=== PATIENT | male | born 1970 | race African-American/Black ===

== ENCOUNTER 2020-07-26 00:04 | Emergency (ER) | payer SELFPAY ==
[2020-07-26] MEDS ORDERED: ASPIRIN 325 MG TAB PO ONE (00:23)
--- NOTE | 2020-07-26 00:50 | XRay Report ---
CHEST 1 VIEW 07/26/2020 12:48 AM INDICATION / CLINICAL INFORMATION: Chest Pain. COMPARISON: None available. FINDINGS: SUPPORT DEVICES: None. HEART / MEDIASTINUM: No significant abnormality. LUNGS / PLEURA: No significant pulmonary or pleural abnormality. No pneumothorax. ADDITIONAL FINDINGS: No significant additional findings. IMPRESSION: 1. No acute findings. Signer Name: Killian Conklin MD Signed: 07/26/2020 12:46 AM Workstation Name: [id number]
[2020-07-26 01:00] LABS: Basophils % (Auto) 0.2 % (0.0-1.8); Eosinophils # (Auto) 0.1 K/mm3 (0.0-0.4); Hematocrit 38.3 % (35.5-45.6); Hemoglobin 13.3 gm/dl (11.8-15.2); Lymphocytes # (Auto) 2.6 K/mm3 (1.2-5.4); Lymphocytes % (Auto) 40.1 % (13.4-35.0); Mean Corpuscular HGB Conc 35 % (32-34); Mean Corpuscular Volume 94 fl (84-94); Monocytes # (Auto) 0.5 K/mm3 (0.0-0.8); Monocytes % (Auto) 7.3 % (0.0-7.3); Platelet Count 225 K/mm3 (140-440); Red Blood Count 4.09 M/mm3 (3.65-5.03); Red Cell Distribution Width 13.3 % (13.2-15.2)
[2020-07-26 01:03] LABS: BUN/Creatinine Ratio 16; Blood Urea Nitrogen 13 mg/dL (9-20); Calcium 8.6 mg/dL (8.4-10.2); Hemolysis Index 7
[2020-07-26] MEDS ORDERED: ALUM-MAG HYDROXIDE-SIMETHICONE 200-200-20MG/5ML ORAL LIQD 30 ML PO ONE (05:13)
[2020-07-26] MEDS ORDERED: LIDOCAINE VISCOUS 2% 15 ML ORAL LIQD PO ONE (05:13)
--- NOTE | 2020-07-26 05:22 | Emergency Department Report ---
ED Chest Pain HPI - General Chief Complaint: Chest Pain Stated Complaint: CHEST TIGHTNESS Source: patient Mode of arrival: Ambulatory Limitations: No Limitations - History of Present Illness Initial Comments: 50-year-old male with no significant past medical history with exception of recently diagnosed GERD and previous hypotension presents to the hospital complaining of intermittent chest pain since 6 PM tonight. Patient has been having intermittent substernal chest tightness while at rest since 6 PM. Episodes occur for 4 to 5 minutes at a time and are not associated with shortness of breath, nausea, vomiting, or diaphoresis. Patient did have episode of nausea after smelling pizza ordered by his son which also worsened his tightness in his chest. He states he ate a bland diet of carrots, water, oatmeal and his discomfort in his chest improved. Patient reports that he exercised yesterday morning and ran around the park without difficulty and no recurrence of pain. Upon EMS arrival patient states he also had palpitations in the center of his chest during chest tightness episode but reports that he did not have a fast heart rate as per EMS. On Monday the while sleeping about 1:00 in a.m. patient woke up from sleep complaining of chest pressure and f eeling like it was worse with inspiration. He was seen at a clinic 2 days later and started on Hyoscyamine and pantoprazole 40mg. He states his symptoms improved until his episode today. He feels like the pain today is different because he is having intermittent tightness without shortness of breath. He denies calf tenderness, leg edema, history of PE/DVT, smoking, family history of CAD, or known elevated cholesterol, hypertension, or diabetes - Related Data Previous Rx's Medication Instructions Recorded Last Taken Type Mag Hydrox/Aluminum Hyd/Simeth 20 ml PO BID PRN #1 bottle 07/26/20 Unknown Rx [Maalox Advanced Suspension] traMADoL [Ultram 50 MG tab] 50 mg PO Q6HR PRN #10 tablet 07/26/20 Unknown Rx Allergies Allergy/AdvReac Type Severity Reaction Status Date / Time No Known Allergies Allergy Unverified 07/26/20 00:23 Heart Score - HEART Score History: Slightly suspicious EKG: Normal Age: 45-65 Risk factors: No known risk factors Troponin: < normal limit HEART Score: 1 ED Review of Systems ROS: Stated complaint: CHEST TIGHTNESS Other details as noted in HPI Comment: All other systems reviewed and negative ED Past Medical Hx - Past Medical History Previous Medical History?: Yes Hx GERD: Yes Additional medical history: Hypotension - Surgical History Past Surgical History?: No - Social History Smoking Status: Never Smoker Substance Use Type: None - Medications Home Medications: Home Medications Medication Instructions Recorded Confirmed Last Taken Type Mag Hydrox/Aluminum Hyd/Simeth 20 ml PO BID PRN #1 bottle 07/26/20 Unknown Rx [Maalox Advanced Suspension] traMADoL [Ultram 50 MG tab] 50 mg PO Q6HR PRN #10 tablet 07/26/20 Unknown Rx ED Physical Exam - General Limitations: No Limitations - Other Other exam information: General: No acute distress Head: Atraumatic Eyes: normal appearance ENT: Moist mucous membranes Neck: Normal appearance, no midline tenderness Chest: Clear to auscultation bilaterally CV: Regular rate and rhythm Abdomen: Soft, normal bowel sounds, nontender, nondistended, no rebound or guarding Back: Normal inspection Extremity: Normal inspection, full range of motion, no calf tenderness or edema Neuro: Alert O x 3, no facial asymmetry, speech clear, no gross motor sensory deficit Psych: Appropriate behavior Skin: No rash ED Course Vital Signs 07/26/20 07/26/20 07/26/20 00:17 03:45 04:01 Temperature 98.0 F Pulse Rate 60 69 65 Respiratory 12 12 13 Rate Blood Pressure 135/76 122/57 109/63 O2 Sat by Pulse 98 97 95 Oximetry 07/26/20 04:15 Temperature Pulse Rate 63 Respiratory 17 Rate Blood Pressure 109/63 O2 Sat by Pulse 97 Oximetry ED Medical Decision Making - Lab Data Result diagrams: 07/26/20 00:31 07/26/20 00:31 Lab Results 07/26/20 07/26/20 07/26/20 Range/Units 00:31 00:31 03:34 WBC 6.6 (4.5-11.0) K/mm3 RBC 4.09 (3.65-5.03) M/mm3 Hgb 13.3 (11.8-15.2) gm/dl Hct 38.3 (35.5-45.6) % MCV 94 (84-94) fl MCH 33 H (28-32) pg MCHC 35 H (32-34) % RDW 13.3 (13.2-15.2) % Plt Count 225 (140-440) K/mm3 Lymph % (Auto) 40.1 H (13.4-35.0) % [place] % (Auto) 7.3 (0.0-7.3) % Eos % (Auto) 1.0 (0.0-4.3) % Baso % (Auto) 0.2 (0.0-1.8) % Lymph # (Auto) 2.6 (1.2-5.4) K/mm3 [place] # (Auto) 0.5 (0.0-0.8) K/mm3 Eos # (Auto) 0.1 (0.0-0.4) K/mm3 Baso # (Auto) 0.0 (0.0-0.1) K/mm3 Seg Neutrophils % 51.4 (40.0-70.0) % Seg Neutrophils # 3.4 (1.8-7.7) K/mm3 Sodium 138 (137-145) mmol/L Potassium 3.8 (3.6-5.0) mmol/L Chloride 99.4 (98-107) mmol/L Carbon Dioxide 25 (22-30) mmol/L Anion Gap 17 mmol/L BUN 13 (9-20) mg/dL Creatinine 0.8 (0.8-1.3) mg/dL Estimated GFR > 60 ml/min BUN/Creatinine Ratio 16 % Glucose 106 H (75-100) mg/dL Calcium 8.6 (8.4-10.2) mg/dL Troponin T < 0.010 < 0.010 (0.00-0.029) ng/mL - EKG Data -: EKG Interpreted by [facility] EKG shows normal: sinus rhythm, ST-T waves (No STEMI) Rate: normal - Radiology Data Radiology results: report reviewed CHEST 1 VIEW 07/26/2020 12:48 AM INDICATION / CLINICAL INFORMATION: Chest Pain. COMPARISON: None available. FINDINGS: SUPPORT DEVICES: None. HEART / MEDIASTINUM: No significant abnormality. LUNGS / PLEURA: No significant pulmonary or pleural abnormality. No pneumothorax. ADDITIONAL FINDINGS: No significant additional findings. IMPRESSION: 1. No acute findings. - Medical Decision Making Patient does not have any cardiac risk factors other than his age. His pain is nonexertional described as a tightness without any associated symptoms. He did have nausea triggered by smelling greasy food and tightness that improved with eating a bland diet. Patient was recently seen at a urgent care and started on GI medication for chest pressure and shortness of breath that woke him out of his sleep. Patient did receive improvement with this medication. Patient did exercise yesterday morning and did not have any exertional chest pain or anginal symptoms. Based on heart score, normal EKG x2, negative troponin x2, and atypical presentation patient does not require admission to the hospital for further cardiac evaluation at this time. Patient does not have any clinical symptoms or risk factors for DVT/PE, like tachypnea, tachycardia, and has a normal pulse ox. Patient treated with Maalox with viscous lidocaine in the ED. Outpatient cardiac evaluation will be recommended and info faxed over to [facility] heart/chest pain referral center. Outpatient GI evaluation will be recommended as well. Maalox will be added to his current regiment. Anxiety is also in the differential. Critical Care Time: No Critical care attestation.: If time is entered above; I have spent that time in minutes in the direct care of this critically ill patient, excluding procedure time. ED Disposition Clinical Impression: Atypical chest pain Disposition: DC-01 TO HOME OR SELFCARE Is pt being admited?: No Does the pt Need Aspirin: No Condition: Stable Instructions: Chest Pain (ED) Additional Instructions: Take the medication as prescribed. Follow-up with your doctor or doctor/clinic provided. You info has been faxed to the chest pain referral center for close follow up. You have been provided the office number for follow up as well. Please call the office on Monday to schedule outpatient follow up with the hostess cashier. You have also been provided follow up information for a GI doctor. Return if symptoms worsen as indicated by your discharge instructions. Make sure you take your Hyosyamine 1 hour before maalox. Prescriptions: Mag Hydrox/Aluminum Hyd/Simeth [Maalox Advanced Suspension] 20 ml PO BID PRN #1 bottle PRN Reason: Indigestion traMADoL [Ultram 50 MG tab] 50 mg PO Q6HR PRN #10 tablet PRN Reason: Pain Referrals: [facility] [Provider Group] - 2-3 Days [facility] [Provider Group] - 3-5 Days [facility] [Primary Care Provider] - 3-5 Days Time of Disposition: 05:37
[2020-07-26 05:23] VITALS: BP 120/72
== END 2020-07-26 06:00 | disposition home or self-care (01) ==
LOC: ED 00:04
DX: R07.89 Other chest pain (principal); R00.2 Palpitations; R11.0 Nausea
CPT/HCPCS: 36415; 71045; 80048; 84484; 85025; 93005